=== PATIENT | male | born 1960 | race Caucasian/White ===

== ENCOUNTER 2016-11-29 16:20 | Emergency (ER) | payer MEDICAID ==
[~2016-11-29] VITALS: Ht 172.7 cm; Wt 90.0 kg
[2016-11-29 16:29] VITALS: BP 163/115
[2016-11-29] MEDS ORDERED: RABIES VACCINE /PF 2.5 UNITS IM-VACC STA (16:49)
[2016-11-29] MEDS ORDERED: RABIES IMMUNE GLOBULIN/PF 150 UNITS/ML, 2ML IM ONE (17:00)
== END 2016-11-29 18:16 | disposition home or self-care (01) ==
LOC: ED 17:03
DX: Z03.89 Encounter for observation for other suspected diseases and conditions ruled out (principal); I10 Essential (primary) hypertension
CPT/HCPCS: 90375; 90471; 90675; 96372

== ENCOUNTER 2016-12-02 13:49 | Emergency (ER) | payer MEDICAID ==
[~2016-12-02] VITALS: Ht 165.1 cm; Wt 89.9 kg
[2016-12-02 14:18] VITALS: BP 162/96
[2016-12-02] MEDS ORDERED: RABIES VACCINE /PF 2.5 UNITS IM-VACC ONE (14:30)
== END 2016-12-02 15:06 | disposition home or self-care (01) ==
LOC: ED 14:28
DX: Z23 Encounter for immunization (principal); I10 Essential (primary) hypertension
CPT/HCPCS: 90471; 90675

== ENCOUNTER 2016-12-06 15:38 | Emergency (ER) | payer MEDICAID ==
[~2016-12-06] VITALS: Ht 172.7 cm; Wt 89.7 kg
[2016-12-06 15:48] VITALS: BP 171/99
[2016-12-06] MEDS ORDERED: RABIES VACCINE /PF 2.5 UNITS IM-VACC ONE (16:30)
== END 2016-12-06 16:29 | disposition home or self-care (01) ==
LOC: ED 16:15
DX: Z23 Encounter for immunization (principal); I10 Essential (primary) hypertension
CPT/HCPCS: 90471; 90675